=== PATIENT | male | born 1945 | race Caucasian/White ===

== ENCOUNTER → 2019-02-05 | Outpatient (CLI) | payer MEDICARE, BC, OTHER ==
[~2019-02-05] MED LIST: ASPI-222 PO; ASPI1TAB20 PO; ASPI325T25 PO; ATOR1TAB19; ATOR1TAB21 PO; BYST5TAB2 PO; ECOT81TA5 PO; EXCETAB81 PO; ISOVUE-370 76% 125ML VIAL (Q9967 PER ML) As Ordered ONE; OMEG10002 PO; PLAV1TAB2 PO; TURM450C PO
[2019-02-05 15:43] LABS: BASO # 0.1 10^3/uL (0.0-0.2); EOS # 0.1 10^3/uL (0.0-0.50); HEMATOCRIT 46.3 % (42.0-52.0); HEMOGLOBIN 15.5 g/dl (13.5-17.5); LYMPH # 1.4 10^3/uL (1.5-4.5); LYMPH % 23.1 % (24.0-44.0); MEAN CORPUSCULAR HGB CONC 33.5 g/dl (32.0-36.5); MEAN CORPUSCULAR VOLUME 86.5 fl (80.0-96.0); MONO # 0.7 10^3/uL (0.0-0.8); MONO % 12.2 % (0.0-5.0); NEUTROPHILS # 3.7 10^3/uL (1.8-7.7); NEUTROPHILS % 62.4 % (36.0-66.0); PLATELET COUNT, AUTOMATED 296 10^3/uL (150-450); RED BLOOD COUNT 5.35 10^6/uL (4.30-6.10); WHITE BLOOD COUNT 5.9 10^3/uL (4.0-10.0)
[2019-02-05 16:07] LABS: ALBUMIN 3.8 GM/DL (3.2-5.2); ALT/SGPT 31 U/L (12-78); BILIRUBIN,TOTAL 0.4 MG/DL (0.2-1.0); BLOOD UREA NITROGEN 17 MG/DL (7-18); CALCIUM LEVEL 9.1 MG/DL (8.8-10.2); CARBON DIOXIDE LEVEL 26 MEQ/L (21-32); CHLORIDE LEVEL 107 MEQ/L (98-107); GLOMERULAR FILTRATION RATE > 60.0 (>42); GLUCOSE, FASTING 95 MG/DL (70-100); POTASSIUM SERUM 3.8 MEQ/L (3.5-5.1); SODIUM LEVEL 140 MEQ/L (136-145); TOTAL PROTEIN 8.4 GM/DL (6.4-8.2)
--- NOTE | 2019-02-05 16:42 | REP ---
Clinical: Headaches and paresthesia . Comparison: None. Technique: Axial noncontrast images from the skull base to the vertex followed by contrast enhanced images using 100 ml Isovue 370 intravenous contrast material. Findings: The ventricles, sulci, and cisterns are normal in position and appearance. Vargas-white differentiation is maintained. No acute intracranial hemorrhage, mass/mass effect, pathology or trauma/injury. No enhancing mass lesion are abnormalities appreciated on contrast enhanced images. The vasculature is relatively symmetric and normal. No evidence for acute infarction. No extra-axial fluid collection. Calvarium is intact. Paranasal sinuses and mastoid air cells are clear. Impression: Normal pre and postcontrast head CT. No evidence for acute intracranial pathology or trauma/injury. No obvious enhancing mass lesion or abnormality. Intracranial vasculature appears relatively symmetric and normal. Electronically Signed by Eyal Rosales MD 02/05/2019 04:32 P
== END ==
LOC: M LAB 15:14
PROVIDERS: ATTEND Physician Assistant
DX: R20.2 Paresthesia of skin (principal); R51 Headache

== ENCOUNTER 2019-02-07 08:45 | Inpatient (IN) | payer MEDICARE, BC, OTHER ==
[~2019-02-07] VITALS: Ht 170.2 cm; Wt 75.2 kg
[2019-02-07] MEDS ORDERED: ATOR1TAB19 (08:54)
[2019-02-07] MEDS ORDERED: BYST5TAB2 PO (08:54)
[2019-02-07] MEDS ORDERED: ASPI1TAB20 PO (08:54)
[2019-02-07] MEDS ORDERED: EXCETAB81 PO (08:55)
[2019-02-07] MEDS ORDERED: ASPI325T25 PO (09:50)
[2019-02-07 10:04] LABS: BASO # 0.1 10^3/uL (0.0-0.2); BASO % 0.8 % (0.0-1.0); EOS # 0.1 10^3/uL (0.0-0.50); EOS % 1.6 % (0.0-3.0); HEMATOCRIT 48.4 % (42.0-52.0); HEMOGLOBIN 16.2 g/dl (13.5-17.5); LYMPH # 1.1 10^3/uL (1.5-4.5); LYMPH % 18.4 % (24.0-44.0); MEAN CORPUSCULAR HEMOGLOBIN 29.2 pg (27.0-33.0); MEAN CORPUSCULAR HGB CONC 33.5 g/dl (32.0-36.5); MEAN CORPUSCULAR VOLUME 87.4 fl (80.0-96.0); MONO # 0.8 10^3/uL (0.0-0.8); MONO % 13.5 % (0.0-5.0); NEUTROPHILS # 4.1 10^3/uL (1.8-7.7); NEUTROPHILS % 65.4 % (36.0-66.0); PLATELET COUNT, AUTOMATED 301 10^3/uL (150-450); RED BLOOD COUNT 5.54 10^6/uL (4.30-6.10); WHITE BLOOD COUNT 6.2 10^3/uL (4.0-10.0)
[2019-02-07 10:45] LABS: ALBUMIN 3.8 GM/DL (3.2-5.2); ALT/SGPT 28 U/L (12-78); BILIRUBIN,TOTAL 0.4 MG/DL (0.2-1.0); BLOOD UREA NITROGEN 25 MG/DL (7-18); CALCIUM LEVEL 9.1 MG/DL (8.8-10.2); CARBON DIOXIDE LEVEL 26 MEQ/L (21-32); CHLORIDE LEVEL 106 MEQ/L (98-107); CREATININE FOR GFR 0.99 MG/DL (0.70-1.30); GLOMERULAR FILTRATION RATE > 60.0 (>42); GLUCOSE, FASTING 111 MG/DL (70-100); SODIUM LEVEL 138 MEQ/L (136-145); TOTAL PROTEIN 7.5 GM/DL (6.4-8.2)
[2019-02-07 10:57] LABS: FOLATE 19.1 NG/ML (>5.4); POTASSIUM SERUM 4.6 MEQ/L (3.5-5.1); VITAMIN B12 LEVEL 700 PG/ML (247-911)
--- NOTE | 2019-02-07 12:35 | REP ---
MRA BRAIN WITHOUT CONTRAST: HISTORY: Face paresthesias. 3D [id number] MR angiography was performed at the level of the [place]. There is no aneurysm , arteriovenous malformation or atherosclerotic lesion. The major intracranial vessels are patent. The vertebral arteries are equal in size. IMPRESSION: Normal MRA brain. Electronically Signed by Trevor Jose MD 02/07/2019 12:36 P
--- NOTE | 2019-02-07 12:39 | REP ---
MR BRAIN WITHOUT CONTRAST: HISTORY: Facial paresthesias. COMPARISON: CT 02/05/2019 An area of increased signal intensity on diffusion and T2-weighted images is present in the right thalamus. This is decreased in signal intensity on ADC images and is consistent with an acute lacunar infarction. Scattered punctate areas of increased signal intensity on T2-weighted images are present in the periventricular and subcortical white matter. This represent small vessel ischemic disease. There is no intraparenchymal hemorrhage, mass or midline shift. The ventricular system and cortical sulci are dilated consistent with minimal volume loss. There is no extracerebral collection. The sinuses are clear. IMPRESSION: 1. Acute right thalamic lacunar infarction. 2. Minimal small vessel ischemic disease. 3. Minimal volume loss. Electronically Signed by Trevor Jose MD 02/07/2019 12:41 P
[2019-02-07] MEDS ORDERED: ASPIRIN 81 MG CHEW TABLET PO ONE (14:00)
[2019-02-07] MEDS ORDERED: OMEG10002 PO (14:17)
[2019-02-07] MEDS ORDERED: TURM450C PO (14:17)
[2019-02-07] MEDS ORDERED: ASPI-222 PO (14:17)
[2019-02-07] MEDS ORDERED: ATOR1TAB21 PO (14:17)
--- NOTE | 2019-02-07 16:26 | HPE ---
DATE OF ADMISSION: 02/07/2019 This 73-year-old male with a past medical history of hypertension and hyperlipidemia presents to the emergency room with chief complaint of 3 days of perioral paresthesia and paresthesia of the tip of his left thumb. No other incidentals were found during the examination. CT scan was negative. Neurology was called by the emergency room (ER) attending, who wanted to discharge the patient, and the recommendation was to get MRI, and if the MRI was negative, then the patient could be discharged. The MRI did, however, come back with a positive finding of an acute thalamic infarct, so the patient will be admitted for further management. The patient at this time still has mild perioral anesthesia and left thumb paresthesia as well. Otherwise, no other complaints. PAST MEDICAL HISTORY: 1. Hypertension. 2. Hyperlipidemia. ALLERGIES: No known drug allergies. FAMILY HISTORY: Negative for early strokes or coronary disease. SOCIAL HISTORY: Patient denies tobacco. Drinks alcohol very rarely and does not take any illicit drugs. HOME MEDICATIONS: - aspirin 325 mg orally daily - atorvastatin 20 mg orally at bedtime - Bystolic 5 mg orally daily - omega-3 fatty acid two capsules orally daily REVIEW OF SYSTEMS: Negative for [id number] systems except what is mentioned in the history of present illness (HPI). VITAL SIGNS: Blood pressure is 187/85, heart rate is 46 and regular, respiratory rate is 16, temperature 97.7, oxygen saturation is 98% on room air. HEAD: Atraumatic, normocephalic. NECK: Supple. No jugular venous distention (JVD). LUNGS: Clear to auscultation. HEART: S1, S2 audible. No murmurs appreciated. ABDOMEN: Soft. Positive bowel sounds. No pedal edema. SKIN: Intact. NEUROLOGIC: Patient has +5 strength, upper and lower extremities bilaterally. Reflexes are +2. Does have sensation in the perioral and left thumb area with mild touch. Patient is awake, alert, oriented times three. LABORATORY DATA: WBC 6.2, hemoglobin 16.2, hematocrit 48.4, platelets are 301,000. Sodium 138, potassium 4.6, chloride 106, CO2 is 26, BUN is 25, creatinine 0.99, glucose 111. Lyme titers are pending. MRI shows acute right thalamic lacunar infarction. IMPRESSION: Acute ischemic stroke. PLAN: Patient to be admitted to medical/surgical floor. Patient is already on a statin and aspirin. Will get carotid Dopplers and echo done, and Dr. Bernstein will be on official consult. Will continue his preadmission medications and follow his care on the medical/surgical floor.
--- NOTE | 2019-02-07 17:43 | REP ---
Clinical: Acute thalamic infarction . Technique: Vargas scale and color Doppler evaluation using linear high frequency transducer Findings: Two-dimensional vargas scale and color images demonstrate mild mixed atheromatous plaquing. Color Doppler interrogation demonstrates normal arterial wave patterns and velocities with mild spectral broadening. Normal flow direction is appreciated in the bilateral vertebral arteries. RIGHT (cm/s) LEFT (cm/s) ICA peak systolic velocity 82.1 136.2 ICA diastolic velocity 21.5 34.8 ECA peak systolic velocity 86.1 164.5 CCA peak systolic velocity 97.7 93.1 ICA/CCA ratio 0.84 1.46 Impression: 1. Right side appears normal. 2. Narrowing of the left internal carotid artery and external carotid artery in the 50-60% range. Electronically Signed by Eyal Rosales MD 02/07/2019 05:35 P
[2019-02-07 18:51] VITALS: BP 166/80
[2019-02-07] MEDS: ATORVASTATIN 20 MG TAB PO SCH (20:57)
[2019-02-07] MEDS: ASPIRIN ENTERIC 325 MG TAB PO SCH (20:57)
[2019-02-07] MEDS: NEBIVOLOL 5 MG TAB (BYSTOLIC) PO SCH (21:00)
[2019-02-07 22:00] VITALS: BP 144/68
[2019-02-08 06:00] VITALS: BP 136/78
[2019-02-08] MEDS: OMEGA-3 1000MG CAPSULE PO SCH (07:44)
--- NOTE | 2019-02-08 10:15 | ECGEPIP ---
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
[2019-02-08 14:00] VITALS: BP 154/67
--- NOTE | 2019-02-08 19:36 | ECHO ---
DATE OF PROCEDURE: 02/08/2019 REFERRING PHYSICIAN: Dr. Bobbi Cantu INDICATION: Cerebrovascular accident. Height 170 cm, weight 75 kg. DIMENSIONS: IVS: 0.9 LV: 4.3 LVPW: 0.8 LA: 3.9 Aorta: 3.1 IVC: 1.3 Mitral E wave velocity: 59 A wave: 78 E prime septal: 6.7 E prime lateral: 6.2 FINDINGS: The study is of good technical quality. Left ventricle is of normal size and systolic function with estimated left ventricular ejection fraction (LVEF) 65-70%. No segmental wall motion abnormalities are appreciated. Right ventricle also appears normal size and systolic function. Both atria appear normal. Aortic, mitral and tricuspid valves were well seen and appear normal. Pulmonic valve was not well seen. No pericardial effusion is noted. Inferior vena cava is normal size. Aortic root, aortic arch and visualized segment of abdominal aorta were reasonably well seen and appeared normal. Doppler interrogation of aortic valve reveals no stenosis or insufficiency. Same is true for mitral valve. There is trace tricuspid insufficiency. Quality of TR jet was not sufficient to adequately estimate pulmonary artery pressure. Mitral inflow pattern and tissue Doppler imaging of mitral annulus revealed grade 1 diastolic dysfunction. CONCLUSIONS: 1. Study is of good technical quality. 2. Normal left ventricular (LV) size with normal systolic function and grade 1 diastolic dysfunction. 3. No significant valvular disease. 4. Likely normal central venous pressure. 5. Unable to estimate pulmonary artery pressure but no signs to suggest pulmonary hypertension. 6. Essentially normal echocardiogram for patient's age.
[2019-02-08] MEDS: ASPIRIN ENTERIC 325 MG TAB PO SCH (20:34)
[2019-02-08] MEDS: ATORVASTATIN 20 MG TAB PO SCH (20:34)
[2019-02-08 20:35] VITALS: BP 158/60
[2019-02-08] MEDS: NEBIVOLOL 5 MG TAB (BYSTOLIC) PO SCH (20:35)
[2019-02-08 22:00] VITALS: BP 158/60
--- NOTE | 2019-02-08 23:16 | IPNPDOC ---
Text Note Date of Service The patient was seen on 02/08/19. NOTE Subjective: still a little paraestesis in the left cheek and the tip ot left fingers. otherwise no other complaints. wants to go home. PHYSICAL EXAM: VITAL SIGNS: As below HEAD: Atraumatic, normocephalic. NECK: Supple. No jugular venous distention (JVD). LUNGS: Clear to auscultation. HEART: S1, S2 regular. No murmurs appreciated. ABDOMEN: Soft. Positive bowel sounds. No pedal edema. SKIN: Intact. NEUROLOGIC: Patient has +5 strength, upper and lower extremities bilaterally. Reflexes are +2. Does have sensation in the perioral and left thumb area with mild touch. Patient is awake, alert, oriented times three. LABs and Radiology: Reviewed. Assessment and Plan: This 73-year-old male with a past medical history of hypertension and hyperlipidemia presents to the emergency room with chief complaint of 3 days of perioral paresthesia and paresthesia of the tip of his left thumb. No other incidentals were found during the examination. CT scan was negative. Neurology was called by the emergency room (ER) attending, who wanted to discharge the patient, and the recommendation was to get MRI, and if the MRI was negative, then the patient could be discharged. The MRI did, however, come back with a positive finding of an acute thalamic infarct, so the patient will be admitted for further management. Acute Ischemic Stroke let thalamic lacunar infarct continue asa and statin echo normal telemetry no arrhythmias Carotid US shows left internal carotid narrowing 50% to 60% range Hypertension continue home medications with hold parameters. Hyperlipidemia continue statin. DVT prophylaxis has been ordered. VS,Fishbone, I+O VS, Fishbone, I+O Vital Signs Date Time Temp Pulse Resp B/P (MAP) Pulse Ox O2 Delivery O2 Flow Rate FiO2 02/08/19 22:00 98.7 52 16 158/60 (92) 97 02/07/19 17:32 Room Air I&O- Last 24 Hours up to 6 AM 02/08/19 06:00 Intake Total 800 ml Balance 800 ml KATE BRUNNER MD Feb 08, 2019 23:16
[2019-02-09 00:09] LABS: Lyme Disease IgG/IgM Antibodie <0.91 ISR (0.00-0.90); Lyme Disease IgM Ab Quantitati <0.80 index (0.00-0.79)
[2019-02-09 06:00] VITALS: BP 153/64
[2019-02-09 06:12] LABS: BASO # 0.1 10^3/uL (0.0-0.2); BASO % 1.3 % (0.0-1.0); EOS # 0.3 10^3/uL (0.0-0.50); EOS % 4.4 % (0.0-3.0); HEMATOCRIT 44.7 % (42.0-52.0); HEMOGLOBIN 14.9 g/dl (13.5-17.5); LYMPH # 1.2 10^3/uL (1.5-4.5); LYMPH % 19.8 % (24.0-44.0); MEAN CORPUSCULAR HEMOGLOBIN 28.7 pg (27.0-33.0); MEAN CORPUSCULAR HGB CONC 33.3 g/dl (32.0-36.5); MONO # 0.9 10^3/uL (0.0-0.8); MONO % 14.9 % (0.0-5.0); NEUTROPHILS # 3.7 10^3/uL (1.8-7.7); NEUTROPHILS % 59.3 % (36.0-66.0); PLATELET COUNT, AUTOMATED 296 10^3/uL (150-450); WHITE BLOOD COUNT 6.2 10^3/uL (4.0-10.0)
[2019-02-09 06:35] LABS: BLOOD UREA NITROGEN 19 MG/DL (7-18); CALCIUM LEVEL 8.7 MG/DL (8.8-10.2); CARBON DIOXIDE LEVEL 25 MEQ/L (21-32); CHLORIDE LEVEL 108 MEQ/L (98-107); CREATININE FOR GFR 0.95 MG/DL (0.70-1.30); GLOMERULAR FILTRATION RATE > 60.0 (>42); GLUCOSE, FASTING 106 MG/DL (70-100); SODIUM LEVEL 142 MEQ/L (136-145)
[2019-02-09] MEDS: OMEGA-3 1000MG CAPSULE PO SCH (08:39)
[2019-02-09] MEDS ORDERED: PLAV1TAB2 PO (09:01)
[2019-02-09] MEDS ORDERED: ECOT81TA5 PO (09:01)
--- NOTE | 2019-02-10 06:09 | DS.PDOC ---
Discharge Summary General Date of Admission Feb 08, 2019 at 14:20 Date of Discharge 02/09/19 Attending Physician: KATE BRUNNER MD Discharge Summary PROCEDURES PERFORMED DURING STAY: Echo: 1. Study is of good technical quality. 2. Normal left ventricular (LV) size with normal systolic function and grade 1 diastolic dysfunction. 3. No significant valvular disease. 4. Likely normal central venous pressure. 5. Unable to estimate pulmonary artery pressure but no signs to suggest pulmonary hypertension. 6. Essentially normal echocardiogram for patient's age. DISCHARGE DIAGNOSES: Acute ischemic stroke. COMPLICATIONS/CHIEF COMPLAINT: Acute Ischemic Stroke. HISTORY OF PRESENT ILLNESS: See history and physical HOSPITAL COURSE: This 73-year-old male with a past medical history of hypertension and hyperlipidemia presents to the emergency room with chief complaint of 3 days of perioral paresthesia and paresthesia of the tip of his left thumb. No other incidentals were found during the examination. CT scan was negative. Neurology was called by the emergency room (ER) attending, who wanted to discharge the patient, and the recommendation was to get MRI, and if the MRI was negative, then the patient could be discharged. The MRI did, however, come back with a positive finding of an acute thalamic infarct, so the patient will be admitted for further management. Acute Ischemic Stroke left thalamic lacunar infarct inspite of being on 325 of ASA will add plavix, and reduce ASA. continue statin. echo normal telemetry no arrhythmias Carotid US shows left internal carotid narrowing 50% to 60% range, right is normal Hypertension continue home medications with hold parameters. Hyperlipidemia continue statin. DISCHARGE MEDICATIONS: Please see below. ALLERGIES: Please see below. PHYSICAL EXAMINATION ON DISCHARGE: VITAL SIGNS: Please see below. GENERAL: Awake, alert oriented x 3, sitting comfortable in bed in no acute distress. HEAD: Atraumatic, normocephalic. NECK: Supple. No jugular venous distention (JVD). LUNGS: Clear to auscultation. HEART: S1, S2 regular. No murmurs appreciated. ABDOMEN: Soft. Positive bowel sounds. No pedal edema. SKIN: Intact. NEUROLOGIC: Patient has +5 strength, upper and lower extremities bilaterally. Reflexes are +2. Does have sensation in the perioral and left thumb area with mild touch. Patient is awake, alert, oriented times three. LABORATORY DATA: Please see below. RADIOLOGY: MRI of Brain: An area of increased signal intensity on diffusion and T2-weighted images is present in the right thalamus. This is decreased in signal intensity on ADC images and is consistent with an acute lacunar infarction. Scattered punctate areas of increased signal intensity on T2-weighted images are present in the periventricular and subcortical white matter. This represent small vessel ischemic disease. There is no intraparenchymal hemorrhage, mass or midline shift. The ventricular system and cortical sulci are dilated consistent with minimal volume loss. There is no extracerebral collection. The sinuses are clear. IMPRESSION: 1. Acute right thalamic lacunar infarction. 2. Minimal small vessel ischemic disease. 3. Minimal volume loss. MRA of Brain 3D [id number] MR angiography was performed at the level of the [place]. There is no aneurysm , arteriovenous malformation or atherosclerotic lesion. The major intracranial vessels are patent. The vertebral arteries are equal in size. IMPRESSION: Normal MRA brain. Carotid US Two-dimensional alonso scale and color images demonstrate mild mixed atheromatous plaquing. Color Doppler interrogation demonstrates normal arterial wave patterns and velocities with mild spectral broadening. Normal flow direction is appreciated in the bilateral vertebral arteries. RIGHT (cm/s) LEFT (cm/s) ICA peak systolic velocity 82.1 136.2 ICA diastolic velocity 21.5 34.8 ECA peak systolic velocity 86.1 164.5 CCA peak systolic velocity 97.7 93.1 ICA/CCA ratio 0.84 1.46 Impression: 1. Right side appears normal. 2. Narrowing of the left internal carotid artery and external carotid artery in the 50-60% range. ACTIVITY: [As tolerated]. DIET: As tolerated DISPOSITION: 01 Home, Self-Care. DISCHARGE INSTRUCTIONS: Follow up with Neurology in 2 to 3 weeks Follow up with PMD in 2 weeks DISCHARGE CONDITION: [Stable]. TIME SPENT ON DISCHARGE: Greater than 30 minutes. Vital Signs/I&Os Vital Signs Date Time Temp Pulse Resp B/P (MAP) Pulse Ox O2 Delivery O2 Flow Rate FiO2 02/09/19 06:00 98.3 48 15 153/64 (93) 94 02/07/19 17:32 Room Air I&O- Last 24 Hours up to 6 AM 02/10/19 06:00 Intake Total 560 ml Balance 560 ml Laboratory Data CBC/BMP Item Value Date Time Lyme Disease IgG/IgM Antibodies <0.91 ISR 02/07/19936 Lyme Disease IgM Ab Quantitation <0.80 index 3/27/19 0937 Item Value Date Time White Blood Count 6.2 10^3/uL 02/09/19 0538 Red Blood Count 5.20 10^6/uL 02/09/19 0538 Hemoglobin 14.9 g/dl 02/09/19 0538 Hematocrit 44.7 % 02/09/19 0538 Mean Corpuscular Volume 86.0 fl 02/09/19 0538 Mean Corpuscular Hemoglobin 28.7 pg 02/09/19 0538 Mean Corpuscular Hemoglobin Concent 33.3 g/dl 02/09/19 0538 Red Cell Distribution Width 13.2 % 02/09/19 0538 Platelet Count 296 10^3/uL 02/09/19 0538 Immature Granulocyte % (Auto) 0.3 % 02/09/19 0538 Neutrophils (%) (Auto) 59.3 % 02/09/19 0538 Lymphocytes (%) (Auto) 19.8 % L 02/09/19 0538 Monocytes (%) (Auto) 14.9 % H 02/09/19 0538 Eosinophils (%) (Auto) 4.4 % H 02/09/19 0538 Basophils (%) (Auto) 1.3 % H 02/09/19 0538 Neutrophils # (Auto) 3.7 10^3/uL 02/09/19 0538 Lymphocytes # (Auto) 1.2 10^3/uL L 02/09/19 0538 Monocytes # (Auto) 0.9 10^3/uL H 02/09/19 0538 Eosinophils # (Auto) 0.3 10^3/uL 02/09/19 0538 Basophils # (Auto) 0.1 10^3/uL 02/09/19 0538 Nucleated Red Blood Cells % (auto) 0.0 % 02/09/19 0538 Sodium Level 142 MEQ/L 02/09/19 0538 Potassium Level 4.0 MEQ/L 02/09/19 0538 Chloride Level 108 MEQ/L H 02/09/19 0538 Carbon Dioxide Level 25 MEQ/L 02/09/19 0538 Anion Gap 9 MEQ/L 02/09/19 0538 Blood Urea Nitrogen 19 MG/DL H 02/09/19 0538 Creatinine 0.95 MG/DL 02/09/19 0538 Glomerular Filtration Rate > 60.0 02/09/19 0538 Fasting Glucose 106 MG/DL H 02/09/19 0538 Calcium Level 8.7 MG/DL L 02/09/19 0538 Total Bilirubin 0.4 MG/DL 02/07/19 0937 Aspartate Amino Transf (AST/SGOT) 24 U/L 02/07/19 0937 Alanine Aminotransferase (ALT/SGPT) 28 U/L 02/07/19 0937 Alkaline Phosphatase 60 U/L 02/07/19 0937 Total Protein 7.5 GM/DL 02/07/19 0937 Albumin 3.8 GM/DL 02/07/19 0937 Albumin/Globulin Ratio 1.03 02/07/19 0937 Vitamin B12 Level 700 PG/ML 02/07/19 0937 Folate 19.1 NG/ML 02/07/19 0937 Discharge Medications Scheduled Aspirin (Ecotrin Low Strength) 81 Mg Tab, 1 TAB PO DAILY for pain Atorvastatin Calcium (Atorvastatin Calcium) 20 Mg Tab, 20 MG PO QHS, (Reported) Clopidogrel Bisulfate (Plavix) 75 Mg Tab, 75 MG PO DAILY Nebivolol (Bystolic) 5 Mg Tab, 5 MG PO QPM, (Reported) [place] 3 Polyunsat Fatty Acids ([place]-3 1000 mg) 1 Cap Cap, 2 CAP PO DAILY, (Reported) Turmeric (Turmeric) 450 Mg Cap, 450 MG PO DAILY, (Reported) Scheduled PRN (Excedrin Extra Strength 250-250-65 mg) 1 Tab Tab, 1 TAB PO BID PRN for MIGRAINE, (Reported) Allergies Coded Allergies: No Known Allergies (Unverified , 02/07/19) KATE BRUNNER MD Feb 10, 2019 06:09
== END 2019-02-09 11:11 | disposition home or self-care (01) | DRG 66 ==
LOC: M ED 08:45 → M ED INP 15:31 → M MSPAV 17:45 → OBSVTOIN 02-08 14:20
PROVIDERS: ADMIT Internal Medicine; ATTEND Internal Medicine Nephrology
DX: I63.9 Cerebral infarction, unspecified (principal); I10 Essential (primary) hypertension; E78.5 Hyperlipidemia, unspecified; I67.82 Cerebral ischemia; Z79.82 Long term (current) use of aspirin; Z79.899 Other long term (current) drug therapy

== ENCOUNTER → 2019-05-01 | Outpatient (CLI) | payer MEDICARE, BC, OTHER ==
[~2019-05-01] MED LIST changes: +ASPI-255 PO; -ASPI325T25 PO; -ISOVUE-370 76% 125ML VIAL (Q9967 PER ML) As Ordered ONE
[2019-05-04 00:08] LABS: BABESIOSIS LEVEL IGG <1:10 (Neg:<1:10); BABESIOSIS LEVEL IGM <1:10 (Neg:<1:10); Lyme Disease IgG/IgM Antibodie <0.91 ISR (0.00-0.90); Lyme Disease IgM Ab Quantitati <0.80 index (0.00-0.79)
== END ==
LOC: M WUC 10:22
PROVIDERS: ATTEND Physician Assistant
DX: R53.1 Weakness (principal)

== ENCOUNTER → 2019-05-01 | Outpatient (CLI) | payer MEDICARE, BC, OTHER ==
[2019-05-01 13:37] LABS: HEMATOCRIT 44.3 % (42.0-52.0); HEMOGLOBIN 14.7 g/dl (13.5-17.5); MEAN CORPUSCULAR HEMOGLOBIN 29.1 pg (27.0-33.0); MEAN CORPUSCULAR HGB CONC 33.2 g/dl (32.0-36.5); MEAN CORPUSCULAR VOLUME 87.5 fl (80.0-96.0); PLATELET COUNT, AUTOMATED 281 10^3/uL (150-450); RED BLOOD COUNT 5.06 10^6/uL (4.30-6.10); WHITE BLOOD COUNT 6.4 10^3/uL (4.0-10.0)
[2019-05-01 14:19] LABS: ALBUMIN 3.5 GM/DL (3.2-5.2); ALT/SGPT 32 U/L (12-78); BILIRUBIN,TOTAL 0.7 MG/DL (0.2-1.0); BLOOD UREA NITROGEN 15 MG/DL (7-18); CALCIUM LEVEL 8.9 MG/DL (8.8-10.2); CARBON DIOXIDE LEVEL 28 MEQ/L (21-32); CHLORIDE LEVEL 107 MEQ/L (98-107); CPK CREATINE PHOSPHOKINASE 92 U/L (39-308); CREATININE FOR GFR 0.81 MG/DL (0.70-1.30); GLOMERULAR FILTRATION RATE > 60.0 (>42); GLUCOSE, FASTING 88 MG/DL (70-100); POTASSIUM SERUM 4.3 MEQ/L (3.5-5.1); SODIUM LEVEL 139 MEQ/L (136-145); TOTAL 25(OH) VITAMIN D 32.9 NG/ML (30.0-100.0); TOTAL PROTEIN 7.7 GM/DL (6.4-8.2)
== END ==
LOC: M WUC 10:29
DX: E78.2 Mixed hyperlipidemia (principal); I10 Essential (primary) hypertension; I70.8 Atherosclerosis of other arteries; R53.1 Weakness

== ENCOUNTER → 2022-07-01 | Outpatient (REF) | payer MEDICARE, BC, OTHER ==
[~2022-07-01] MED LIST changes: -ASPI-222 PO; +ASPI-527 PO; -ASPI1TAB20 PO; +ASPI325T57 PO
== END ==
LOC: M LAB REF 08:50
PROVIDERS: ATTEND Surgery
DX: L98.8 Other specified disorders of the skin and subcutaneous tissue (principal)